=== PATIENT | female | born 1995 | race African-American/Black ===

== ENCOUNTER 2017-05-06 23:54 | Emergency (ER) | payer OTHER ==
[2017-05-07 00:51] VITALS: BP 154/70; PULSE 83; TEMP 98.7; BMI 858.6
--- NOTE | 2017-05-07 02:50 | PDOC ---
History of Present Illness - General Chief Complaint: Lightheaded Stated Complaint: FATIGUE Time Seen by Provider: 05/07/17 01:20 History Source: Patient Exam Limitations: No Limitations - History of Present Illness Initial Comments: 05/07/17 02:58 21-year-old female without any medical history presents to the emergency department stating she is exhausted because she takes care of her 1-year-old and 4-year-old day. Patient states she was dizzy from running around all day but since arriving to the emergency department, she was able to rest and feels a lot better. Patient denies headache, dizziness, lightheadedness, visual disturbance, facial pains, neck pain/stiffness, chest pain, back pain, shortness of breath, abdominal pains, flank pains, urinary symptoms, extremity numbness or tingling sensation. Patient states she is eating and drinking without any difficulties. Patient states all she needs was a break from running around with her children. Timing/Duration: 1 week Associated Symptoms: reports: denies symptoms Past History - Past Medical History Allergies/Adverse Reactions: Allergies Allergy/AdvReac Type Severity Reaction Status Date / Time No Known Allergies Allergy Verified 05/07/17 00:45 Home Medications: Ambulatory Orders No Known Home Medication 1 tab PO DAILY 03/11/16 Ferrous Sulfate [Feosol] 325 mg PO BIDWM #60 ud 03/12/16 Ibuprofen [Motrin -] 600 mg PO Q4H PRN #20 tablet 03/12/16 Vitamins (Sjr) - 1 tab PO DAILY #30 tablet 03/12/16 Asthma: Yes (last attack in December) Cancer: No Cardiac Disorders: No Diabetes: No HTN: No Seizures: No Thyroid Disease: No - Suicide/Smoking/Psychosocial Hx Smoking Status: No Smoking History: Never smoked Have you smoked in the past 12 months: No Number of Cigarettes Smoked Daily: 0 Information on smoking cessation initiated: No Hx Alcohol Use: No Drug/Substance Use Hx: No Hx Substance Use Treatment: No Review of Systems - Review of Systems Able to Perform ROS?: Yes Comments:: 05/07/17 02:59 CONSTITUTIONAL: Absent: fever, chills, diaphoresis, generalized weakness, malaise, loss of appetite HEENT: Absent: rhinorrhea, nasal congestion, throat pain, throat swelling, difficulty swallowing, mouth swelling, ear pain, eye pain, visual Changes CARDIOVASCULAR: Absent: chest pain, loss of consciousness, palpitations, irregular heart rate, peripheral edema RESPIRATORY: Absent: cough, shortness of breath, dyspnea with exertion, orthopnea, wheezing, stridor, hemoptysis GASTROINTESTINAL: Absent: abdominal pain, abdominal distension, nausea, vomiting, diarrhea, constipation, melena, hematochezia GENITOURINARY: Absent: dysuria, frequency, urgency, hesitancy, hematuria, flank pain, genital pain MUSCULOSKELETAL: Absent: myalgia, arthralgia, joint swelling SKIN: Absent: rash, itching, pallor HEMATOLOGIC/IMMUNOLOGIC: Absent: easy bleeding, easy bruising, lymphadenopathy, frequent infections ENDOCRINE: Absent: unexplained weight gain, unexplained weight loss, heat intolerance, cold intolerance NEUROLOGIC: Absent: headache, focal weakness or paresthesias, dizziness, unsteady gait, seizure, mental status changes, bladder or bowel incontinence PSYCHIATRIC: Absent: anxiety, depression, suicidal or homicidal ideation, hallucinations. Is the patient limited Slovak proficient: No *Physical Exam - Vital Signs Last Vital Signs Temp Pulse Resp BP Pulse Ox 98.7 F 83 20 154/70 99 05/07/17 00:45 05/07/17 00:45 05/07/17 00:45 05/07/17 00:45 05/07/17 00:45 - Physical Exam Comments: 05/07/17 02:59 GENERAL: Well developed, well nourished. Awake and alert. No acute distress. HEENT: Normocephalic, atraumatic. PERRLA, EOMI. No conjunctival pallor. Sclera are non- icteric. Moist mucous membranes. Oropharynx is clear. NECK: Supple. Full ROM. No JVD. Carotid pulses 2+ and symmetric, without bruits. No thyromegaly. No lymphadenopathy. CARDIOVASCULAR: Regular rate and rhythm. No murmurs, rubs, or gallops. Distal pulses are 2+ and symmetric. PULMONARY: No evidence of respiratory distress. Lungs clear to auscultation bilaterally. No wheezing, rales or rhonchi. ABDOMINAL: Soft. Non-tender. Non-distended. No rebound or guarding. No organomegaly. Normoactive bowel sounds. MUSCULOSKELETAL Normal range of motion at all joints. No bony deformities or tenderness. No CVA tenderness. EXTREMITIES: No cyanosis. No clubbing. No edema. No calf tenderness. SKIN: Warm and dry. Normal capillary refill. No rashes. No jaundice. NEUROLOGICAL: Alert, awake, appropriate. Cranial nerves 2-12 intact. No deficits to light touch and temperature in face, upper extremities and lower extremities. No motor deficits in the in face, upper extremities and lower extremities. Normoreflexic in the upper and lower extremities. Normal speech. Toes are down- going bilaterally. Gait is normal without ataxia. PSYCHIATRIC: Cooperative. Good eye contact. Appropriate mood and affect. *DC/Admit/Observation/Transfer Diagnosis at time of Disposition: Tiredness - Discharge Dispostion Disposition: HOME Condition at time of disposition: Stable Admit: No - Referrals Referrals: Diogenes Harry MD [Staff Physician] - - Patient Instructions Additional Instructions: Rest Increase fluids Follow up with your physician within 48 hours Return to the ER as needed - Post Discharge Activity
== END 2017-05-07 03:03 | disposition home or self-care (01) ==
LOC: JER 23:54
DX: R53.83 Other fatigue (principal); Z87.09 Personal history of other diseases of the respiratory system
CPT/HCPCS: 99282-25

== ENCOUNTER 2022-02-14 15:32 | Observation (INO) | payer OTHER ==
[2022-02-14] MEDS ORDERED: SODIUM CHLORIDE 0.9% 500 ML INFUS.BAG IV ONE (16:06)
[2022-02-14 16:31] VITALS: BMI 51.3
[2022-02-14 17:29] LABS: EOS % 4.5 % (0-4.5); HEMATOCRIT 31.1 % (32.4-45.2); HEMOGLOBIN 9.5 GM/dL (10.7-15.3); LYMPH % 17.3 % (8-40); MCH 20.5 pg (25.7-33.7); MCHC 30.5 g/dl (32.0-36.0); MEAN CELL VOLUME 67.2 fl (80-96); NEUT % 70.2 % (42.8-82.8); PLATELET COUNT 407 10^3/uL (134-434); RBC 4.63 M/mm3 (3.60-5.2)
[2022-02-14 17:48] LABS: ALBUMIN 3.3 g/dl (3.4-5.0); BLOOD UREA NITROGEN 9.5 mg/dL (7-18); CALCIUM 8.9 mg/dL (8.5-10.1)
[2022-02-14 17:54] LABS: BILIRUBIN,TOTAL 0.4 mg/dL (0.2-1); TOT PROT 7.3 g/dl (6.4-8.2)
[2022-02-14 17:57] LABS: ANISOCYTOSIS 2+; MACROCYTOSIS 0; OVALOCYTE 1+; TARGET CELLS 0
[2022-02-14 21:11] LABS: RETICULOCYTES 1.64 % (0.5-1.5)
[2022-02-14 21:21] LABS: MAGNESIUM 2.3 mg/dL (1.8-2.4)
[2022-02-14 21:25] LABS: PHOSPHOROUS 2.3 mg/dL (2.5-4.9)
[2022-02-14] MEDS ORDERED: ALBUTEROL SO4 HFA INHALER IH PRN (22:37)
[2022-02-14] MEDS ORDERED: SODIUM CHLORIDE 1,000 ML IV SCH (23:00)
[2022-02-15] MEDS: INSULIN SLIDING SCALE (NOVOLOG) 1 VIAL SQ SCH ×2 (06:54→11:36)
[2022-02-15] MEDS ORDERED: LEVOTHYROXINE NA 50 MCG TABLET (FP) PO SCH (07:00)
[2022-02-15 07:11] VITALS: RESP 20
[2022-02-15 07:49] LABS: BASO % 1.1 % (0-2.0); EOS % 6.5 % (0-4.5); HEMATOCRIT 29.2 % (32.4-45.2); HEMOGLOBIN 8.9 GM/dL (10.7-15.3); LYMPH % 32.1 % (8-40); MCH 20.3 pg (25.7-33.7); MCHC 30.5 g/dl (32.0-36.0); MEAN CELL VOLUME 66.6 fl (80-96); MEAN PLT VOLUME 9.4 fl (7.5-11.1); NEUT % 49.3 % (42.8-82.8); PLATELET COUNT 384 10^3/uL (134-434); RBC 4.39 M/mm3 (3.60-5.2); RDW 18.5 % (11.6-15.6); WHITE BLOOD COUNT 6.1 K/mm3 (4.0-10.0)
[2022-02-15 08:08] LABS: CALCIUM 8.7 mg/dL (8.5-10.1); MAGNESIUM 2.2 mg/dL (1.8-2.4)
[2022-02-15 08:09] LABS: ALBUMIN 3.2 g/dl (3.4-5.0); BLOOD UREA NITROGEN 9.4 mg/dL (7-18)
[2022-02-15 08:10] LABS: CREATININE 0.8 mg/dL (0.55-1.3)
[2022-02-15 08:13] LABS: BILIRUBIN,TOTAL 0.6 mg/dL (0.2-1)
[2022-02-15] MEDS ORDERED: ENOXAPARIN NA (PORCINE) 40 MG/0.4 ML DISP.SYRIN SQ SCH ×2 (10:00)
[2022-02-15 15:32] VITALS: BP 119/68; PULSE 86; TEMP 98.5
== END 2022-02-15 17:56 | disposition home or self-care (01) ==
LOC: JER 15:32 → UNDOADMOB 17:02 → JERBED 17:02 → INTOOBSV 22:30 → OBSVTOIN 22:30 → J4W 23:32 → JERBED 23:32 → J4W 02-15 11:06 → JERBED 02-15 11:06
PROVIDERS: ADMIT Internal Medicine; ATTEND Internal Medicine
PROC: 3E023GC Introduction of Other Therapeutic Substance into Muscle, Percutaneous Approach (ICD-10-PCS; principal; 2022-02-15)
PROC: 3E0337Z Introduction of Electrolytic and Water Balance Substance into Peripheral Vein, Percutaneous Approach (ICD-10-PCS; 2022-02-15)
DX: E03.9 Hypothyroidism, unspecified (principal); R55 Syncope and collapse; J45.909 Unspecified asthma, uncomplicated; E66.09 Other obesity due to excess calories; Z68.43 Body mass index [BMI] 50.0-59.9, adult; J45.998 Other asthma
CPT/HCPCS: 0241U-QW; 36415; 70450-TC; 71046-TC-FY; 80053; 80061; 82728; 82962; 83036; 83540; 83550; 83735; 84100; 84436; 84443; 84466; 84484; 84703; 85025; 85045; 93005; 93010; 93306-TC; 93880-TC; 96360; 96372; 99285-25; G0378